=== PATIENT | male | born 1995 | race Caucasian/White ===

== ENCOUNTER 2019-09-04 18:04 | Emergency (ER) | payer OTHER, SELFPAY ==
[2019-09-04 18:15] VITALS: BP 105/54; PULSE 57; RESP 16; TEMP 36.9; O2SAT 97; BMI 26.6
--- NOTE | 2019-09-04 18:42 | ED.GENADULT ---
HPI - General Adult General Chief complaint: Abdominal Pain Stated complaint: STOMACH CRAMPS VOMITING FATIGUE ANXIETY Time Seen by Provider: 09/04/19 18:32 Source: patient Mode of arrival: Ambulatory Limitations: no limitations History of Present Illness HPI narrative: 24-year-old male here for evaluation of nausea and anxiety and stomach pain and headaches and fatigue. Does smoke marijuana which he does not think makes symptoms worse. No cough for shortness of breath. 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 He has had anxiety in the past. Is not currently on any medications for this. Has not tried anything for his symptoms prior to arrival Related Data Previous Rx's Medication Instructions Recorded lorazepam [Ativan] 0.5 mg PO TID PRN #10 tab 09/04/19 Allergies Allergy/AdvReac Type Severity Reaction Status Date / Time No Known Drug Allergies Allergy Verified 09/04/19 18:22 Review of Systems Constitutional Constitutional: Reports chills, Reports fatigue, Denies fever(s), Reports headache(s) and Reports malaise Eyes Eyes: Denies change in vision ENT Ears, Nose, Mouth, and Throat: Reports headache(s) Cardiovascular Cardiovascular: Denies chest pain and Denies dyspnea Respiratory Respiratory: Denies dyspnea Gastrointestinal Gastrointestinal: Denies change in bowel habits and Reports nausea Musculoskeletal Musculoskeletal: Denies arthralgias and Denies myalgias Integumentary/Breasts Skin/Breast: Denies rash Neurologic Neurologic: Denies behavioral changes and Reports headache(s) Psychiatric Psychiatric: Denies behavioral changes Endocrine Endocrine: Reports fatigue Hematologic/Lymphatic Hematologic/Lymphatic: Denies easy bleeding and Denies easy bruising Patient History Medical History (Updated 09/05/19 @ 00:32 by Shola Villareal DO) Anxiety (Inactive) Impacted cerumen of left ear (Inactive) Social History Smoking Status: Current every day smoker Smoking Status: Current every day smoker tobacco type: cigarettes alcohol intake frequency: a few times a month Alcohol type: hard liquor Substance Use Type: marijuana Exam Initial Vital Signs Initial Vital Signs: Vital Signs Temperature 98.4 F 09/04/19 18:15 Pulse Rate 57 L 09/04/19 18:15 Respiratory Rate 16 09/04/19 18:15 Blood Pressure 105/54 L 09/04/19 18:15 Pulse Oximetry 97 09/04/19 18:15 HENMT Head: normal to inspection and normocephalic Resp Effort & Inspection: normal respiratory effort Auscultation: clear to auscultation bilaterally Cardio Rate: regular rate Rhythm: regular rhythm GI Inspection: non-distended Palpation: soft Skin Lesions: no lesions Rashes: no rashes Neuro General: patient alert, patient awake and patient oriented x3 Cognition: normal cognition Speech: speech normal Extrem General: capillary refill normal Psych Appearance: grossly normal and well kempt Speech and Movement: restless Mood: anxious mood Course Vital Signs Vital signs: Vital Signs - 8 hr 09/04/19 18:15 Temperature 98.4 F Pulse Rate 57 L Respiratory Rate 16 Blood Pressure 105/54 L Pulse Oximetry 97 Medical Decision Making MDM Narrative Medical decision making narrative: I suspect that the patient's symptoms are related to anxiety. I have low suspicion for pneumonia or intra-abdominal surgical pathology. Low suspicion for COVID-19 based on his history and physical exam. I asked the patient if he felt like he needed anxiety medicine and he said yes. Will send him home with a short course of Ativan. Will have him follow-up with his primary provider. He was given strict return precautions. He did expressed understanding and agreement with this plan and did express agreement with holding on further workup. Discharge Plan Departure Patient Disposition: Home Clinical Impression: Anxiety Discharge Date/Time: 09/04/19 18:59 Instructions: DI for Anxiety -- Adult Activity Restrictions/Additional Instructions: Recommend that you contact your primary provider for a follow-up. If you do not have a primary provider you can contact the health water resources technical officer at [phone]. Return to the emergency department for any new or worsening symptoms Prescriptions: New lorazepam [Ativan] 0.5 mg tablet 0.5 mg PO TID PRN (Reason: anxiety) Qty: 10 RF: 0
== END 2019-09-04 18:59 | disposition home or self-care (01) ==
PROVIDERS: Emergency Provider Emergency Medicine
DX: F41.9 Anxiety disorder, unspecified (principal); R11.2 Nausea with vomiting, unspecified; R51 Headache; R10.9 Unspecified abdominal pain
CPT/HCPCS: 99281

== ENCOUNTER 2019-09-08 14:13 | Emergency (ER) | payer OTHER, SELFPAY ==
[2019-09-08 14:19] VITALS: BP 104/86; PULSE 54; RESP 16; TEMP 36.9; O2SAT 100; BMI 26.6
--- NOTE | 2019-09-08 15:09 | ED.NAVMDI ---
HPI - Nausea/Vomiting/Diarrhea <Maeve Drummond PA-C - Last Filed: 09/08/19 22:17> General Chief complaint: Nausea/Vomiting/Diarrhea Stated complaint: states nausea/anxiety Time Seen by Provider: 09/08/19 14:39 Source: patient Mode of arrival: Ambulatory History of Present Illness HPI Narrative: This is a 24-year-old male with a history of anxiety who presents to the emergency department complaining of feeling 1 like he wanted to throw up when he saw food this morning, loose stools for 2 weeks, increased anxiety recently including a feeling of tightness in his stomach with nausea this morning. He was seen previously in the emergency department here 2 days ago. He advises that he uses marijuana but lately this has not been helping as much with his anxiety. He says that he has been having stools about once a day and they are not watery they are just slightly loose. He says that he has nausea in the morning and at night occasionally and he believes it is associated with his anxiety. He had a full meal last night but has not eaten much today. He brings with him a prescription for Ativan which he says he has only used a couple times since he received. When asked what brought him in today specifically he says that he just wants to make sure that was going on is anxiety and wants a note for work as he has missed the last couple of days and does not feel he is going to be able to go in consistently in the next few days. He presents with his mother and they both say that they are in the process of moving they have been living in a house with multiple families and least 7 people in the same house and he has been sleeping on a couch for a while now. This has increased his anxiety significantly lately but they are moving to a bigger house in the 3rd week of September. He works as a gas plumber at night. He states he used to have agoraphobia however this has resolved. He states he has never seen a counselor or psychiatrist. He denies anorexia, vomiting, diarrhea, constipation, ongoing abdominal pain, chest pain, fever, chills, body aches or any other symptoms. MD complaint: nausea Onset (ago): hour(s) (4) Description of Vomiting: none Description of Diarrhea: none and other (Has been having 1 slightly loose stool a day for the past 2 weeks) Associated Abdominal Pain: No (When he feels nausea/anx he gets tightness in belly, not present now) Location of pain: other (Center of bili) Radiation: does not radiate Severity: mild Severity scale (1-10): 2 Quality: other (Tightness like a ball) Pain Consistency: now resolved Relieving factors: other (Becoming less anxious) Exacerbating factors: other (Anxiety and stress) Associated symptoms: denies other symptoms Related Data Previous Rx's Medication Instructions Recorded lorazepam [Ativan] 0.5 mg PO TID PRN #10 tab 09/04/19 ondansetron 4 mg PO Q8H #20 tab 09/08/19 Allergies Allergy/AdvReac Type Severity Reaction Status Date / Time No Known Drug Allergies Allergy Verified 09/08/19 14:19 Review of Systems <Maeve Drummond PA-C - Last Filed: 09/08/19 22:17> Review of Systems Narrative: GENERAL: Denies chills, fatigue, malaise, fever, sweats. HEENT: Denies sinus pain, ear pain, sore throat, difficulty swallowing, dizziness. RESPIRATORY: Denies dyspnea, cough, wheezing, hemoptysis, sputum. CARDIOVASCULAR: Denies chest pain, palpitations, orthopnea, edema, GASTROINTESTINAL: Positive for nausea, denies vomiting, positive for abdominal pain associated with anxiety episodes, negative for diarrhea, constipation, melena. : Had 1 episode last night where he Peed and then felt he needed to pee again right away but was unable to otherwise Denies dysuria, frequency, incontinence, hematuria, urinary retention. MUSCULOSKELETAL: denies weakness, joint pain, or bony pain SKIN: Denies rash, skin lesions, or other NEUROLOGIC: Denies weakness, headache, numbness, change in speech, confusion, seizures, incoordination. PSYCHIATRIC: Positive for worsening anxiety recently. No other concerning psychosocial issues. 12 point review of systems is negative except for those stated above Patient History <Maeve Drummond PA-C - Last Filed: 09/08/19 22:17> Medical History Anxiety (Inactive) Impacted cerumen of left ear (Inactive) Social History Smoking Status: Current every day smoker Smoking Status: Current every day smoker tobacco type: cigarettes alcohol intake frequency: a few times a month Alcohol type: hard liquor Substance Use Type: marijuana Exam <Maeve Drummond PA-C - Last Filed: 09/08/19 22:17> Narrative Exam Narrative: GENERAL: 24 year old patient appears stated age. Well-nourished, well-developed patient, in mild distress. HEAD: Atraumatic. Normocephalic. EYES: Pupils equal round and reactive. Extraocular motions intact. No scleral icterus. No injection or drainage. ENT: Nose without bleeding, purulent drainage. Throat without erythema, tonsillar hypertrophy or exudate. Airway patent. NECK: Trachea midline. Non tender CARDIOVASCULAR: Regular rate and rhythm without murmurs, gallops, or rubs. RESPIRATORY: Clear to auscultation. Breath sounds equal bilaterally. No wheezes, rales, or rhonchi. GASTROINTESTINAL: Abdomen soft, non-tender, nondistended. EXTREMITIES: No edema or joint tenderness. BACK: Nontender without deformity or crepitance. No flank tenderness. NEURO: AOx3. SKIN: No rash or erythema of visible areas Initial Vital Signs Initial Vital Signs: Vital Signs Temperature 98.4 F 09/08/19 14:19 Pulse Rate 54 L 09/08/19 14:19 Respiratory Rate 16 09/08/19 14:19 Blood Pressure 104/86 09/08/19 14:19 Pulse Oximetry 100 09/08/19 14:19 <Jackie Shelton MD - Last Filed: 09/10/19 18:49> Initial Vital Signs Initial Vital Signs: Vital Signs Temperature 98.4 F 09/08/19 14:19 Pulse Rate 54 L 09/08/19 14:19 Respiratory Rate 16 09/08/19 14:19 Blood Pressure 104/86 09/08/19 14:19 Pulse Oximetry 100 09/08/19 14:19 Scores <Maeve Drummond PA-C - Last Filed: 09/08/19 22:17> GCS [place] coma scale eye opening: Spontaneous [place] coma scale verbal response: Orientated [place] coma scale motor response: Obey commands [place] coma scale total score: 15 Course <Maeve Drummond PA-C - Last Filed: 09/08/19 22:17> Vital Signs Vital signs: Vital Signs - 8 hr 09/08/19 14:19 09/08/19 16:43 Temperature 98.4 F Pulse Rate 54 L 82 Respiratory Rate 16 12 Blood Pressure 104/86 138/76 Pulse Oximetry 100 98 <Jackie Shelton MD - Last Filed: 09/10/19 18:49> Vital Signs Vital signs: Vital Signs - 8 hr 09/08/19 14:19 09/08/19 16:43 Temperature 98.4 F Pulse Rate 54 L 82 Respiratory Rate 16 12 Blood Pressure 104/86 138/76 Pulse Oximetry 100 98 MDM - Nausea/Vomiting/Diarrhea <Maeve Drummond PA-C - Last Filed: 09/08/19 22:17> Differential Diagnosis Differential diagnosis: Likely other (Anxiety, nausea) Medical Records Attestation: I reviewed the patient's medical records. Lab Data Attestation: I reviewed the patient's lab results. Labs: Urine Dip Bedside Urine Glucose Negative Bedside Urine Bilirubin - Negative Bedside Urine Ketone - Negative Urine Specific [place] 1.015 Bedside Urine Occult Blood - Negative Bedside Urine pH 8.0 Bedside Urine Protein - Negative Bedside Urine Urobilinogen +/- 1mg Bedside Urine Nitrite - Negative Bedside Urine Leukocytes - Negative Esterase MDM Narrative Medical decision making narrative: This is a 24-year-old male with history of anxiety and reported agoraphobia now resolved who presents to the emergency department complaining of an episode of nausea this morning when he saw food and ongoing problems with anxiety, as well as 1 loose stool per day for the past 2 weeks. Differential diagnoses considered included anxiety, nausea, gastroenteritis, viral illness, appendicitis I have low suspicion for any acute process based on the patient's history and exam--which is unremarkable, labs and imaging were not obtained with exception of UA which was negative, patient was not anxious during emergency department stay and had no active symptoms. Patient has had increased stress recently and increased anxiety; was seen in the emergency department 2 days ago for the same he was prescribed Zofran today and given a note for work through mid next week and advised to establish care with a PCP, seek counseling and/or psychiatry care for further management of his anxiety. Patient presented with his mother patient and mother were in agreement with the plan and all questions were answered, emergency return precautions were provided. <Jackie Shelton MD - Last Filed: 09/10/19 18:49> Lab Data Labs: Urine Dip Bedside Urine Glucose Negative Bedside Urine Bilirubin - Negative Bedside Urine Ketone - Negative Urine Specific [place] 1.015 Bedside Urine Occult Blood - Negative Bedside Urine pH 8.0 Bedside Urine Protein - Negative Bedside Urine Urobilinogen +/- 1mg Bedside Urine Nitrite - Negative Bedside Urine Leukocytes - Negative Esterase Discharge Plan Departure Patient Disposition: Home Clinical Impression: Anxiety, Nausea Discharge Date/Time: 09/08/19 16:44 Instructions: Anxiety Disorders, DI for Anxiety -- Adult, DI for Nausea -- Adult Activity Restrictions/Additional Instructions: Thank you for letting his be part of your care today in the emergency department. There is no evidence of an emergent or life threatening illness at this time, but follow up with your doctor in 1-2 days is recommended nonetheless to continue to rule out serious underlying causes of your symptoms. Please call the office for an appointment. Please return to the Emergency Department for any worsening or persistent symptoms. Please take medications as directed. I have prescribed Zofran which is an anti nausea medicine that may be helpful to you when you feel like your anxiety is acting up, you can also continue to take the anti anxiety medicine that you were prescribed previously as needed. I do recommend you pursue counseling and/or seeing a psychiatrist as it seems that your symptoms of anxiety have been worsening somewhat recently and has been under increased stress. It is also important you follow-up with a primary care physician after her visit today to see how you are doing in the next few days to 1 week. Please try again to establish a primary care doctor and be seen by them this will be important if you need ongoing medication for your anxiety. Prescriptions: New ondansetron 4 mg tablet,disintegrating 4 mg PO Q8H Qty: 20 RF: 0 No Action lorazepam [Ativan] 0.5 mg tablet 0.5 mg PO TID PRN (Reason: anxiety) Qty: 10 RF: 0 Referrals: [facility] [Outside] Stand Alone Forms: Work Release Note <Jackie Shelton MD - Last Filed: 09/10/19 18:49> [facility]: I was immediately available in the department for consultation throughout this patient's visit. I agree with documentation as above. Jackie Shelton MD
[2019-09-08 16:43] VITALS: BP 138/76; PULSE 82; RESP 12; O2SAT 98
== END 2019-09-08 16:44 | disposition home or self-care (01) ==
PROVIDERS: Emergency Provider Student in an Organized Health Care Education/Training Program
DX: F41.9 Anxiety disorder, unspecified (principal); R11.0 Nausea
CPT/HCPCS: 81003; 99281

== ENCOUNTER 2022-02-12 21:40 | Emergency (ER) | payer OTHER, MEDICAID, SELFPAY ==
[2022-02-12 22:09] VITALS: BP 105/68; PULSE 88; RESP 18; TEMP 36.8; O2SAT 100; BMI 34.1
[2022-02-12 23:22] LABS: Add Manual Diff / Slide Review NO; Basophils Absolute Auto 100 /uL (0-100); Basophils Percent Auto 0.8 % (0-2); Eosinophils Absolute Auto 100 /uL (0-450); Eosinophils Percent Auto 1.1 % (2-4); Hematocrit 47.7 % (41-53); Hemoglobin 15.9 g/dL (13.5-17.5); Lymphocytes Absolute Auto 2200 /uL (1100-4500); Lymphocytes Percent Auto 22.4 % (25-40); Mean Corpuscular HGB Conc 33.4 % (30-36); Mean Corpuscular Hemoglobin 29.8 PG (26-34); Mean Corpuscular Volume 89.1 fL (80-100); Monocytes Absolute Auto 800 /uL (0-900); Monocytes Percent Auto 8.7 % (3-14); Neutrophils Absolute Auto 6500 /uL (1500-7000); Platelet Count 281 X10^3/uL (150-400); Red Blood Cell Count 5.35 X10^6/uL (4.5-5.9); Red Cell Distribution Width 13.5 % (11.6-14.8); White Blood Cell Count 9.7 X10^3/uL (4.5-11.0)
[2022-02-12 23:29] LABS: Acetaminophen < 10 ug/mL (10-30); Alanine Aminotransferase 75 IU/L (<50); Albumin 4.6 g/dL (3.5-5.0); Albumin Globulin Ratio 1.7 (1.0-2.8); Alkaline Phosphatase 70 U/L (38-126); Aspartate Aminotransferase 43 IU/L (17-59); BUN Creatinine Ratio 10.4 (6-22); Bilirubin Total 0.9 mg/dL (0.2-1.3); Blood Urea Nitrogen 11 mg/dL (9-20); Calcium 9.3 mg/dL (8.4-10.2); Carbon Dioxide 25 mmol/L (22-32); Chloride 103 mmol/L (98-107); Estimated Glomerular Filt Rate > 60 mL/min (>60); Ethanol (ETOH) < 10 mg/dL; Globulin 2.7 g/dL (1.7-4.1); Glucose 89 mg/dL (70-100); HEMOLYSIS < 15 (0-50); Potassium 3.5 mmol/L (3.4-5.1); Salicylate < 1.0 mg/dL (<20); Sodium 140 mmol/L (137-145); Total Protein 7.3 g/dL (6.3-8.2)
[2022-02-12 23:35] LABS: Ur Creatinine 50 (Normal); Ur Specific Gravity >1.030 (Normal); Urine pH 5 (Normal)
[2022-02-12 23:36] LABS: UR Morphine/Opiate cutoff 300 Negative (Negative); Urine Amphetamines Negative (Negative); Urine Barbiturates Negative (Negative); Urine Benzodiazepines Negative (Negative); Urine Cocaine Negative (Negative); Urine MDMA Negative (Negative); Urine Methadone Negative (Negative); Urine Methamphetamines Negative (Negative); Urine Oxycodone Negative (Negative); Urine Phencyclidine Negative (Negative); Urine Tetrahydrocannabinol Positive (Negative); Urine Tricyclic Antidepressant Negative (Negative)
--- NOTE | 2022-02-12 23:39 | PC.NURSE ---
pt reports he doesn't want to harm or hurt himself at this time. after throwing out his pills he used weed and went home. states he wanted to just go to bed but that his mom came in and he told her what he'd done. she brought him in.
[2022-02-12 23:50] LABS: Free T4, Direct Thyroxine 1.12 ng/dL (0.78-2.19)
[2022-02-13 00:04] LABS: Thyroid Stimulating Hormone 2.24 uIU/mL (0.47-4.68)
--- NOTE | 2022-02-13 00:33 | ED_ITS ---
HPI - Psych <Catie Chappell DO - Last Filed: 02/14/22 03:51> General Chief Complaint: Psychiatric Symptoms Stated Complaint: Attempted suicide Time Seen by Provider: 02/13/22 00:32 Source: patient Mode of arrival: Ambulatory History of Present Illness HPI Narrative: Patient is a 26-year-old male who has anxiety depression chronic suicidal thoughts presenting today after almost attempted suicide. States that he and his family were arguing he took all of his pills drove to [place] went to the bathroom and was going to take all of them an attempt to kill himself but he did not and dumped most of them down the toilet. He denies taking any medications. He states that he has had thoughts of suicide since high school thought that it was normal. However tonight is seen got really bad. Mother states that he has been in poor mental health for a while and she is quite concerned for him. His family is apparently pushing him to be have better adult. Related Data Previous Rx's Medication Instructions Recorded clonazepam 0.5 mg tablet 0.5 mg PO DAILY #30 tabs 09/26/19 hydroxyzine HCl 25 mg tablet 25 mg PO BID PRN anxiety #60 tabs 09/26/19 ondansetron 4 mg disintegrating 4 mg PO Q8H #30 tabs 09/26/19 tablet Allergies Allergy/AdvReac Type Severity Reaction Status Date / Time No Known Drug Allergies Allergy Verified 09/26/19 11:01 Review of Systems <DO Marcell Neely Last Filed: 02/14/22 03:51> Review of Systems Narrative: GENERAL: Denies chills, fatigue, malaise, fever, sweats, travel HEENT: Denies sinus pain, ear pain, sore throat, difficulty swallowing, neck tania n RESPIRATORY: Denies dyspnea, cough, wheezing, hemoptysis, sputum. CARDIOVASCULAR: Denies chest pain, palpitations, orthopnea, edema GASTROINTESTINAL: Denies nausea, vomiting, abdominal pain, diarrhea, constipation, melena. : Denies dysuria, frequency, incontinence, hematuria, urinary retention, flank pain. MUSCULOSKELETAL: Denies weakness, joint pain, or bony pain SKIN: No rash, no erythema, no pruritus NEUROLOGIC: Denies weakness, dizziness, headache, numbness, change in speech, confusion PSYCHIATRIC: See HPI 12 point review of systems is negative except for those stated above and HPI Patient History <DO Marcell Neely Last Filed: 02/14/22 03:51> Medical History (Updated 02/13/22 @ 07:58 by Cookie Ramos DO) Anxiety Impacted cerumen of left ear Social History Smoking Status: Current every day smoker Smoking Status: Current every day smoker tobacco type: cigarettes alcohol intake frequency: a few times a month Alcohol type: hard liquor Substance Use Type: marijuana Exam <DO Marcell Neely Last Filed: 02/14/22 03:51> Initial Vital Signs Initial Vital Signs: Vital Signs Temperature 98.2 F 02/12/22 22:09 Pulse Rate 88 02/12/22 22:09 Respiratory Rate 18 02/12/22 22:09 Blood Pressure 105/68 02/12/22 22:09 Pulse Oximetry 100 02/12/22 22:09 Oxygen Delivery Method 02/12/22 22:09 GENERAL: Tearfull 26-year-old male, good eye contact CARDIOVASCULAR: peripheral pulses in tact, cap refill <2 sec RESPIRATORY: No respiratory distress, speaks in full sentences without difficulty [ABDOMEN: Soft, nontender, no guarding or rebound] EXTREMITIES: Normal range of motion, no clubbing or edema. Neurovascularly intact NEUROLOGICAL: Cranial nerves II through XII grossly intact. Normal gait and speech. SKIN: Warm, dry, no petechiae, no rashes or lesions. Psych Appearance: grossly normal Mental Status: mental status grossly normal Speech and Movement: speech and movement normal Affect: sad Attitude: cooperative Thought Process: normal Thought Content: normal Judgment: judgment good <Cookie Ramos DO - Last Filed: 02/15/22 11:29> Initial Vital Signs Initial Vital Signs: Vital Signs Temperature 98.2 F 02/12/22 22:09 Pulse Rate 88 02/12/22 22:09 Respiratory Rate 18 02/12/22 22:09 Blood Pressure 105/68 02/12/22 22:09 Pulse Oximetry 100 02/12/22 22:09 Oxygen Delivery Method 02/12/22 22:09 Course <DO Marcell Neely Last Filed: 02/14/22 03:51> Orders Ordered: Discontinued Medications Lorazepam (Lorazepam 0.5 Mg Tablet) 0.5 mg PO NOW ONE Stop: 02/13/22 13:34 Last Admin: 02/13/22 13:51 Dose: 0.5 mg Documented By: MARTHA Vital Signs Vital signs: Vital Signs - 8 hr 02/13/22 12:16 02/13/22 18:08 Temperature 97.7 F Pulse Rate 53 L 54 L Respiratory Rate 12 16 Blood Pressure 108/59 L 116/83 Pulse Oximetry 97 98 Oxygen Delivery Method Room Air Room Air <Cookie Ramos DO - Last Filed: 02/15/22 11:29> Orders Ordered: Discontinued Medications Lorazepam (Lorazepam 0.5 Mg Tablet) 0.5 mg PO NOW ONE Stop: 02/13/22 13:34 Last Admin: 02/13/22 13:51 Dose: 0.5 mg Documented By: MARTHA Vital Signs Vital signs: Vital Signs - 8 hr 02/13/22 12:16 02/13/22 18:08 Temperature 97.7 F Pulse Rate 53 L 54 L Respiratory Rate 12 16 Blood Pressure 108/59 L 116/83 Pulse Oximetry 97 98 Oxygen Delivery Method Room Air Room Air MDM - Psych <Catie Chappell, DO - Last Filed: 02/14/22 03:51> Lab Data Result diagrams: 02/12/22 23:00 02/12/22 23:00 Labs: Lab Results 02/12/22 02/12/22 02/12/22 Range/Units 23:00 23:00 23:00 WBC 9.7 (4.5-11.0) X10^3/uL RBC 5.35 (4.5-5.9) X10^6/uL Hgb 15.9 (13.5-17.5) g/dL Hct 47.7 (41-53) % MCV 89.1 (80-100) fL MCH 29.8 (26-34) PG MCHC 33.4 (30-36) % RDW 13.5 (11.6-14.8) % Plt Count 281 (150-400) X10^3/uL Neut % (Auto) 67.0 (50-75) % Lymph % (Auto) 22.4 L (25-40) % Centre % (Auto) 8.7 (3-14) % Eos % (Auto) 1.1 L (2-4) % Baso % (Auto) 0.8 (0-2) % Neut # (Auto) 6500 (6757-5323) /uL Lymph # (Auto) 2200 (2524-9317) /uL Centre # (Auto) 800 (0-900) /uL Eos # (Auto) 100 (0-450) /uL Baso # (Auto) 100 (0-100) /uL Sodium 140 (137-145) mmol/L Potassium 3.5 (3.4-5.1) mmol/L Chloride 103 (98-107) mmol/L Carbon Dioxide 25 (22-32) mmol/L BUN 11 (9-20) mg/dL Creatinine 1.06 (0.66-1.25) mg/dL Estimated GFR > 60 (>60) mL/min BUN/Creatinine Ratio 10.4 (6-22) Glucose 89 (70-100) mg/dL Calcium 9.3 (8.4-10.2) mg/dL Total Bilirubin 0.9 (0.2-1.3) mg/dL AST 43 (17-59) IU/L ALT 75 H (<50) IU/L Alkaline Phosphatase 70 (38-126) U/L Total Protein 7.3 (6.3-8.2) g/dL Albumin 4.6 (3.5-5.0) g/dL Globulin 2.7 (1.7-4.1) g/dL Albumin/Globulin Ratio 1.7 (1.0-2.8) TSH 2.24 (0.47-4.68) uIU/mL Free T4 1.12 (0.78-2.19) ng/dL Salicylates < 1.0 (<20) mg/dL U Opiates 300ng/mL cut (Negative) Ur Oxycodone Screen (Negative) Urine Methadone Screen (Negative) Acetaminophen < 10 (10-30) ug/mL Ur Barbiturates Screen (Negative) U Tricyclic Antidepress (Negative) Ur Phencyclidine Scrn (Negative) Ur Amphetamines Screen (Negative) U Methamphetamines Scrn (Negative) Ur MDMA Scrn (Ecstasy) (Negative) U Benzodiazepines Scrn (Negative) Urine Cocaine Screen (Negative) U Marijuana (THC) Screen (Negative) Ethyl Alcohol < 10 ( - 10) mg/dL SARS-CoV-2 (PCR) (Negative) 02/12/22 02/13/22 Range/Units 23:10 03:24 WBC (4.5-11.0) X10^3/uL RBC (4.5-5.9) X10^6/uL Hgb (13.5-17.5) g/dL Hct (41-53) % MCV (80-100) fL MCH (26-34) PG MCHC (30-36) % RDW (11.6-14.8) % Plt Count (150-400) X10^3/uL Neut % (Auto) (50-75) % Lymph % (Auto) (25-40) % Centre % (Auto) (3-14) % Eos % (Auto) (2-4) % Baso % (Auto) (0-2) % Neut # (Auto) (2064-0783) /uL Lymph # (Auto) (7989-1741) /uL Centre # (Auto) (0-900) /uL Eos # (Auto) (0-450) /uL Baso # (Auto) (0-100) /uL Sodium (137-145) mmol/L Potassium (3.4-5.1) mmol/L Chloride (98-107) mmol/L Carbon Dioxide (22-32) mmol/L BUN (9-20) mg/dL Creatinine (0.66-1.25) mg/dL Estimated GFR (>60) mL/min BUN/Creatinine Ratio (6-22) Glucose (70-100) mg/dL Calcium (8.4-10.2) mg/dL Total Bilirubin (0.2-1.3) mg/dL AST (17-59) IU/L ALT (<50) IU/L Alkaline Phosphatase (38-126) U/L Total Protein (6.3-8.2) g/dL Albumin (3.5-5.0) g/dL Globulin (1.7-4.1) g/dL Albumin/Globulin Ratio (1.0-2.8) TSH (0.47-4.68) uIU/mL Free T4 (0.78-2.19) ng/dL Salicylates (<20) mg/dL U Opiates 300ng/mL cut Negative (Negative) Ur Oxycodone Screen Negative (Negative) Urine Methadone Screen Negative (Negative) Acetaminophen (10-30) ug/mL Ur Barbiturates Screen Negative (Negative) U Tricyclic Antidepress Negative (Negative) Ur Phencyclidine Scrn Negative (Negative) Ur Amphetamines Screen Negative (Negative) U Methamphetamines Scrn Negative (Negative) Ur MDMA Scrn (Ecstasy) Negative (Negative) U Benzodiazepines Scrn Negative (Negative) Urine Cocaine Screen Negative (Negative) U Marijuana (THC) Screen Positive H (Negative) Ethyl Alcohol ( - 10) mg/dL SARS-CoV-2 (PCR) Negative (Negative) Urine Dip Bedside Urine Glucose Negative Bedside Urine Bilirubin - Negative Bedside Urine Ketone - Negative Urine Specific [place] 1.030 Bedside Urine Occult Blood - Negative Bedside Urine pH 6.0 Bedside Urine Protein - Negative Bedside Urine Urobilinogen - Negative Bedside Urine Nitrite - Negative Bedside Urine Leukocytes - Negative Esterase MDM Narrative Medical decision making narrative: Patient did have real thoughts of suicide night but fortunately did not take any medications. Blood work is overall reassuring. He has good family support. They have guns at home which are locked away his. Like to be placed. He understands that nothing is a quick fix. Patient would likely benefit from i npatient. Currently voluntary. Does not meet involuntary criteria. Signed out to Dr. Ramos [facility] has been contacted. <Cookie Ramos, DO - Last Filed: 02/15/22 11:29> Lab Data Labs: Lab Results 02/12/22 02/12/22 02/12/22 Range/Units 23:00 23:00 23:00 WBC 9.7 (4.5-11.0) X10^3/uL RBC 5.35 (4.5-5.9) X10^6/uL Hgb 15.9 (13.5-17.5) g/dL Hct 47.7 (41-53) % MCV 89.1 (80-100) fL MCH 29.8 (26-34) PG MCHC 33.4 (30-36) % RDW 13.5 (11.6-14.8) % Plt Count 281 (150-400) X10^3/uL Neut % (Auto) 67.0 (50-75) % Lymph % (Auto) 22.4 L (25-40) % Centre % (Auto) 8.7 (3-14) % Eos % (Auto) 1.1 L (2-4) % Baso % (Auto) 0.8 (0-2) % Neut # (Auto) 6500 (5446-2212) /uL Lymph # (Auto) 2200 (3082-3583) /uL Centre # (Auto) 800 (0-900) /uL Eos # (Auto) 100 (0-450) /uL Baso # (Auto) 100 (0-100) /uL Sodium 140 (137-145) mmol/L Potassium 3.5 (3.4-5.1) mmol/L Chloride 103 (98-107) mmol/L Carbon Dioxide 25 (22-32) mmol/L BUN 11 (9-20) mg/dL Creatinine 1.06 (0.66-1.25) mg/dL Estimated GFR > 60 (>60) mL/min BUN/Creatinine Ratio 10.4 (6-22) Glucose 89 (70-100) mg/dL Calcium 9.3 (8.4-10.2) mg/dL Total Bilirubin 0.9 (0.2-1.3) mg/dL AST 43 (17-59) IU/L ALT 75 H (<50) IU/L Alkaline Phosphatase 70 (38-126) U/L Total Protein 7.3 (6.3-8.2) g/dL Albumin 4.6 (3.5-5.0) g/dL Globulin 2.7 (1.7-4.1) g/dL Albumin/Globulin Ratio 1.7 (1.0-2.8) TSH 2.24 (0.47-4.68) uIU/mL Free T4 1.12 (0.78-2.19) ng/dL Salicylates < 1.0 (<20) mg/dL U Opiates 300ng/mL cut (Negative) Ur Oxycodone Screen (Negative) Urine Methadone Screen (Negative) Acetaminophen < 10 (10-30) ug/mL Ur Barbiturates Screen (Negative) U Tricyclic Antidepress (Negative) Ur Phencyclidine Scrn (Negative) Ur Amphetamines Screen (Negative) U Methamphetamines Scrn (Negative) Ur MDMA Scrn (Ecstasy) (Negative) U Benzodiazepines Scrn (Negative) Urine Cocaine Screen (Negative) U Marijuana (THC) Screen (Negative) Ethyl Alcohol < 10 ( - 10) mg/dL SARS-CoV-2 (PCR) (Negative) 02/12/22 02/13/22 Range/Units 23:10 03:24 WBC (4.5-11.0) X10^3/uL RBC (4.5-5.9) X10^6/uL Hgb (13.5-17.5) g/dL Hct (41-53) % MCV (80-100) fL MCH (26-34) PG MCHC (30-36) % RDW (11.6-14.8) % Plt Count (150-400) X10^3/uL Neut % (Auto) (50-75) % Lymph % (Auto) (25-40) % Centre % (Auto) (3-14) % Eos % (Auto) (2-4) % Baso % (Auto) (0-2) % Neut # (Auto) (6270-0485) /uL Lymph # (Auto) (2558-4476) /uL Centre # (Auto) (0-900) /uL Eos # (Auto) (0-450) /uL Baso # (Auto) (0-100) /uL Sodium (137-145) mmol/L Potassium (3.4-5.1) mmol/L Chloride (98-107) mmol/L Carbon Dioxide (22-32) mmol/L BUN (9-20) mg/dL Creatinine (0.66-1.25) mg/dL Estimated GFR (>60) mL/min BUN/Creatinine Ratio (6-22) Glucose (70-100) mg/dL Calcium (8.4-10.2) mg/dL Total Bilirubin (0.2-1.3) mg/dL AST (17-59) IU/L ALT (<50) IU/L Alkaline Phosphatase (38-126) U/L Total Protein (6.3-8.2) g/dL Albumin (3.5-5.0) g/dL Globulin (1.7-4.1) g/dL Albumin/Globulin Ratio (1.0-2.8) TSH (0.47-4.68) uIU/mL Free T4 (0.78-2.19) ng/dL Salicylates (<20) mg/dL U Opiates 300ng/mL cut Negative (Negative) Ur Oxycodone Screen Negative (Negative) Urine Methadone Screen Negative (Negative) Acetaminophen (10-30) ug/mL Ur Barbiturates Screen Negative (Negative) U Tricyclic Antidepress Negative (Negative) Ur Phencyclidine Scrn Negative (Negative) Ur Amphetamines Screen Negative (Negative) U Methamphetamines Scrn Negative (Negative) Ur MDMA Scrn (Ecstasy) Negative (Negative) U Benzodiazepines Scrn Negative (Negative) Urine Cocaine Screen Negative (Negative) U Marijuana (THC) Screen Positive H (Negative) Ethyl Alcohol ( - 10) mg/dL SARS-CoV-2 (PCR) Negative (Negative) Urine Dip Bedside Urine Glucose Negative Bedside Urine Bilirubin - Negative Bedside Urine Ketone - Negative Urine Specific [place] 1.030 Bedside Urine Occult Blood - Negative Bedside Urine pH 6.0 Bedside Urine Protein - Negative Bedside Urine Urobilinogen - Negative Bedside Urine Nitrite - Negative Bedside Urine Leukocytes - Negative Esterase MDM Narrative Medical decision making narrative: Patient did have real thoughts of suicide night but fortunately did not take any medications. Blood work is overall reassuring. He has good family support. They have guns at home which are locked away his. Like to be placed. He understands that nothing is a quick fix. Patient would likely benefit from inpatient. Currently voluntary. Does not meet involuntary criteria. Signed out to Dr. Ramos [facility] [place] has been contacted. Rachel 02/13/22: Patient signed out to myself by Dr. Chappell. Patient seen independently. Initially sleeping. Spoke with his mother he has been accepted voluntarily at [facility]. Plan is for transfer sometime after 7:30 p.m. today. No additional issues through the shift. Discharge Plan Departure Patient Disposition: Xfer Psychiatric Hosp Clinical Impression: Depression Referrals: Major Burgess MD [Primary Care Provider] -
[2022-02-13 04:11] LABS: COVID19 -Nasal RAPID Negative (Negative)
[2022-02-13 12:16] VITALS: BP 108/59; PULSE 53; RESP 12; TEMP 36.5; O2SAT 97
--- NOTE | 2022-02-13 13:35 | CM.SWNOTE ---
Pt is a 26 year old male with history of depression, anxiety, and panic attacks who presents to ED with SI. Overnight, pt saw ED provider and staff midwife who assisted in getting acceptance at [facility] hospital. SW met with pt and he reports that he is agreeable to plan to dc to [facility] because he needs help. Pt reports history of SI all the way back to high school. Pt reports that he has never attempted before last night. Pt reports that he used to engage in self harm via cutting starting in high school but has not engaged in this behavior in some time. Pt reports that he was on medication for mental health disorders but stopped taking it a couple months ago when he moved from [place] back to [place]. Plan: Pt will discharge to [facility] today via BLS at 1820. JESUS Martínez
[2022-02-13] MEDS: LORazepam 0.5 MG TABLET PO (13:51)
[2022-02-13 18:08] VITALS: BP 116/83; PULSE 54; RESP 16; O2SAT 98
[2022-02-13 19:20] VITALS: BP 111/62; PULSE 50; O2SAT 98
== END 2022-02-13 19:25 ==
PROVIDERS: Emergency Medicine; Emergency Provider Emergency Medicine; PCP Student in an Organized Health Care Education/Training Program
DX: F32.A Depression, unspecified (principal); F41.1 Generalized anxiety disorder; Z20.822 Contact with and (suspected) exposure to COVID-19
CPT/HCPCS: 80053; 80305; 80320; 80329; 81003; 84439; 84443; 85025; 87635; 99284; C9803; G0480

== ENCOUNTER 2024-03-27 14:39 | Emergency (ER) | payer OTHER, SELFPAY ==
[2024-03-27 14:50] VITALS: BP 106/73; PULSE 53; RESP 17; TEMP 36.4; O2SAT 98; BMI 30.9
--- NOTE | 2024-03-27 14:58 | DI.US.S_ITS ---
PROCEDURE: US SCROTUM INDICATIONS: LEFT TESTICLE PAIN TECHNIQUE: Real-time scanning was performed of the scrotum and testicles, with image documentation. Color and pulse Doppler interrogation was performed of both testicles. COMPARISON: None. FINDINGS: Right: Testicle is normal in size at 4.5 x 2.3 x 2.5 cm, and homogenous in echotexture. Epididymis is normal in overall size and morphology. No hydrocele or varicoceles. Overlying scrotal skin is normal in thickness. Left: Testicle is normal in size at 4.2 x 2.4 x 2.8 cm, and homogeneous in echotexture. Epididymis is normal in overall size and morphology. No hydrocele or varicoceles. Overlying scrotal skin is normal in thickness. Doppler: Color and pulse Doppler demonstrate normal and symmetric arterial flow in both testicles. IMPRESSION: Normal testicular sonogram. No sonographic evidence of testicular torsion, orchitis or epididymitis. Dictated by: Margaret Resendez MD, PhD on 03/27/2024 at 15:33 Approved by: Margaret Resendez MD, PhD on 03/27/2024 at 15:34
[2024-03-27 17:53] LABS: Urine N gonorrhoeae NOT DETECTED
[2024-03-27 17:55] LABS: Urine Chlamydia NOT DETECTED
[2024-03-27] MEDS: ONDANSETRON 4 MG ODT SL (18:18)
[2024-03-27 18:19] VITALS: BP 112/59; PULSE 49; RESP 99
--- NOTE | 2024-03-27 18:42 | ED.MALEGU ---
HPI - Male Genitourinary <Theo Steele PA-C - Last Filed: 03/27/24 18:46> General Chief complaint: Urogenital-Male Stated complaint: Pain in groin. Sent by [facility]. Time Seen by Provider: 03/27/24 15:18 Source: patient Mode of arrival: Ambulatory History of Present Illness HPI Narrative: 28-year-old male presents to the ED with left testicular discomfort for 3 days. Patient denies any trauma. No fever, chills, dysuria. Patient states that his symptoms have remarkably improved today, almost completely resolved. Related Data Home Medications Medication Instructions Recorded Confirmed lamotrigine 200 mg tablet 200 mg PO DAILY 03/27/24 03/27/24 Previous Rx's Medication Instructions Recorded clonazepam 0.5 mg tablet 0.5 mg PO DAILY #30 tabs 09/26/19 hydroxyzine HCl 25 mg tablet 25 mg PO BID PRN anxiety #60 tabs 09/26/19 Allergies Allergy/AdvReac Type Severity Reaction Status Date / Time No Known Drug Allergies Allergy Verified 03/27/24 14:48 Review of Systems <Theo Steele PA-C - Last Filed: 03/27/24 18:46> Constitutional Constitutional: Denies chills, Denies fatigue, Denies fever(s), Denies frequent falls, Denies lethargy and Denies weakness Eyes Eyes: Denies change in vision, Denies eye discharge, Denies irritation and Denies loss of vision ENT Ears, Nose, Mouth, and Throat: Denies change in voice, Denies dizziness, Denies neck pain, Denies sore throat and Denies throat swelling Cardiovascular Cardiovascular: Denies chest pain, Denies irregular heart rhythm, Denies lightheadedness, Denies palpitations, Denies dyspnea, Denies dyspnea on exertion and Denies orthopnea Respiratory Respiratory: Denies cough, Denies dyspnea, Denies dyspnea on exertion and Denies wheezing Gastrointestinal Gastrointestinal: Denies abdominal pain, Denies change in bowel habits, Denies diarrhea, Denies nausea and Denies vomiting Genitourinary Genitourinary: Reports testicular pain Musculoskeletal Musculoskeletal: Denies neck pain and Denies numbness Integumentary/Breasts Skin/Breast: Denies pruritus, Denies erythema, Denies rash and Denies wounds Neurologic Neurologic: Denies behavioral changes, Denies confusion, Denies dizziness, Denies frequent falls, Denies loss of vision, Denies numbness and Denies weakness Psychiatric Psychiatric: Denies anxiety, Denies behavioral changes, Denies confusion, Denies depression, Denies homicidal ideation and Denies suicidal ideation Endocrine Endocrine: Denies fatigue, Denies flushing and Denies palpitations Hematologic/Lymphatic Hematologic/Lymphatic: Denies easy bruising Allergic/Immunologic Allergic/Immunologic: Denies urticaria, Denies throat swelling and Denies wheezing Patient History <Theo Steele PA-C - Last Filed: 03/27/24 18:46> Medical History Anxiety Impacted cerumen of left ear Social History Smoking Status: Current every day smoker Smoking Status: Current every day smoker tobacco type: cigarettes alcohol intake frequency: a few times a month Alcohol type: hard liquor Exam <Theo Steele PA-C - Last Filed: 03/27/24 18:46> Narrative Exam Narrative: Const General:?cooperative, healthy appearing and comfortable [facility] Head:?normal to inspection Ears:?hearing grossly normal bilaterally Nose:?external nose normal Face and sinus:?normal facial exam and sinuses nontender Mouth:?oral mucosae normal Throat:?posterior oropharynx normal Eyes General:?appearance normal, both eyes and all related structures Neck Neck:?normal visual inspection and no lymphadenopathy noted Resp Effort & Inspection:?normal respiratory effort Auscultation:?clear to auscultation bilaterally Cardio Rate:?regular rate Rhythm:?regular rhythm Normal exam. No scrotal swelling, tenderness to palpation, erythema. Neuro General:?patient alert, patient awake and patient oriented x3 Initial Vital Signs Initial Vital Signs: Vital Signs Temperature 97.6 F 03/27/24 14:50 Pulse Rate 53 L 03/27/24 14:50 Respiratory Rate 17 03/27/24 14:50 Blood Pressure 106/73 03/27/24 14:50 Pulse Oximetry 98 03/27/24 14:50 Oxygen Delivery Method Room Air 03/27/24 14:50 <Jackie Shelton MD - Last Filed: 03/28/24 08:35> Initial Vital Signs Initial Vital Signs: Vital Signs Temperature 97.6 F 03/27/24 14:50 Pulse Rate 53 L 03/27/24 14:50 Respiratory Rate 17 03/27/24 14:50 Blood Pressure 106/73 03/27/24 14:50 Pulse Oximetry 98 03/27/24 14:50 Oxygen Delivery Method Room Air 03/27/24 14:50 Course <Theo Steele PA-C - Last Filed: 03/27/24 18:46> Orders Ordered: Discontinued Medications Ondansetron HCl (Ondansetron 4 Mg Odt) 4 mg SL NOW ONE Stop: 03/27/24 18:14 Last Admin: 03/27/24 18:18 Dose: 4 mg Documented By: OLESYA Vital Signs Vital signs: Vital Signs - 8 hr 03/27/24 14:50 03/27/24 18:19 Temperature 97.6 F Pulse Rate 53 L 49 L Respiratory Rate 17 99 H Blood Pressure 106/73 112/59 L Pulse Oximetry 98 Oxygen Delivery Method Room Air Room Air <Jackie Shelton MD - Last Filed: 03/28/24 08:35> Orders Ordered: Discontinued Medications Ondansetron HCl (Ondansetron 4 Mg Odt) 4 mg SL NOW ONE Stop: 03/27/24 18:14 Last Admin: 03/27/24 18:18 Dose: 4 mg Documented By: OLESYA Vital Signs Vital signs: Vital Signs - 8 hr 03/27/24 14:50 03/27/24 18:19 Temperature 97.6 F Pulse Rate 53 L 49 L Respiratory Rate 17 99 H Blood Pressure 106/73 112/59 L Pulse Oximetry 98 Oxygen Delivery Method Room Air Room Air MDM - Male Genitourinary <Theo Steele PA-C - Last Filed: 03/27/24 18:46> Lab Data Labs: Lab Results 03/27/24 Range/Units 16:08 Ur Chlamydia DNA (PCR) Not detected N gonorrhoeae DNA (PCR) Not detected Urine Dip Bedside Urine Glucose Negative Bedside Urine Bilirubin - Negative Bedside Urine Ketone - Negative Urine Specific [place] 1.020 Bedside Urine Occult Blood - Negative Bedside Urine pH 6.0 Bedside Urine Protein - Negative Bedside Urine Urobilinogen - Negative Bedside Urine Nitrite - Negative Bedside Urine Leukocytes - Negative Esterase MDM Narrative Medical decision making narrative: 28-year-old male presents to the ED with left testicular discomfort for 3 days. Obtained a scrotal ultrasound which was without acute findings. UA without infection. GC was negative. It is reassuring that patient's symptoms have almost completely resolved. Patient did have some nausea for which he was given some Zofran. Recommend patient monitor his symptoms and return to the ED if he has any worsening symptoms. ED return precautions discussed with patient. Patient verbalized understanding. Medical records reviewed: Yes <Jackie Shelton MD - Last Filed: 03/28/24 08:35> Lab Data Labs: Lab Results 03/27/24 Range/Units 16:08 Ur Chlamydia DNA (PCR) Not detected N gonorrhoeae DNA (PCR) Not detected Urine Dip Bedside Urine Glucose Negative Bedside Urine Bilirubin - Negative Bedside Urine Ketone - Negative Urine Specific [place] 1.020 Bedside Urine Occult Blood - Negative Bedside Urine pH 6.0 Bedside Urine Protein - Negative Bedside Urine Urobilinogen - Negative Bedside Urine Nitrite - Negative Bedside Urine Leukocytes - Negative Esterase Discharge Plan Departure Patient Disposition: Home Clinical Impression: Left testicular pain Instructions: DI for Testicular Pain Activity Restrictions/Additional Instructions: You were evaluated in the ED today for testicular pain. Your ultrasound and urine were normal. Please monitor your symptoms and return to the ED if you have worsening symptoms. Please follow-up with your PCP as soon as possible. Prescriptions: No Action hydroxyzine HCl 25 mg tablet 25 mg PO BID PRN (Reason: anxiety) Qty: 60 0RF clonazepam 0.5 mg tablet 0.5 mg PO DAILY Qty: 30 0RF lamotrigine 200 mg tablet 200 mg PO DAILY Referrals: Miscellaneous,DoctorMD [Primary Care Provider] - Stand Alone Forms: Patient Portal/API/Survey ED Sign-out <Jackie Shelton MD - Last Filed: 03/28/24 08:35> Cosign ED Attending Cosignature Attestation: I was immediately available in the department for consultation throughout this patient's visit. Jackie Shelton MD
== END 2024-03-27 18:20 | disposition home or self-care (01) ==
PROVIDERS: Emergency Provider Student in an Organized Health Care Education/Training Program
DX: N50.812 Left testicular pain (principal)
CPT/HCPCS: 76870; 81003; 87491; 87591; 93975; 99283

== ENCOUNTER → 2024-07-24 14:29 | Outpatient (CLI) | payer OTHER, SELFPAY ==
[2024-07-24 15:56] LABS: Add Manual Diff / Slide Review NO; Basophils Absolute Auto 100 /uL (0-100); Basophils Percent Auto 0.8 % (0-2); Eosinophils Absolute Auto 100 /uL (0-450); Eosinophils Percent Auto 1.6 % (2-4); Hematocrit 45.6 % (41-53); Hemoglobin 15.6 g/dL (13.5-17.5); Lymphocytes Absolute Auto 1800 /uL (1100-4500); Lymphocytes Percent Auto 24.9 % (25-40); Mean Corpuscular HGB Conc 34.3 % (30-36); Mean Corpuscular Hemoglobin 31.1 PG (26-34); Mean Corpuscular Volume 90.8 fL (80-100); Monocytes Absolute Auto 600 /uL (0-900); Monocytes Percent Auto 8.6 % (3-14); Neutrophils Absolute Auto 4600 /uL (1500-7000); Neutrophils Percent Auto 64.1 % (50-75); Platelet Count 241 X10^3/uL (150-400); Red Blood Cell Count 5.02 X10^6/uL (4.5-5.9); Red Cell Distribution Width 12.9 % (11.6-14.8); White Blood Cell Count 7.1 X10^3/uL (4.5-11.0)
[2024-07-24 16:26] LABS: Alanine Aminotransferase 28 IU/L (<50); Albumin 4.5 g/dL (3.5-5.0); Alkaline Phosphatase 57 U/L (38-126); Aspartate Aminotransferase 31 IU/L (17-59); BUN Creatinine Ratio 7.9 (6-22); Bilirubin Total 1.1 mg/dL (0.2-1.3); Blood Urea Nitrogen 10 mg/dL (9-20); Calcium 9.2 mg/dL (8.4-10.2); Carbon Dioxide 27 mmol/L (22-32); Chloride 104 mmol/L (98-107); Estimated Glomerular Filt Rate > 60 mL/min (>60); Globulin 2.2 g/dL (1.7-4.1); Glucose 80 mg/dL (70-99); HEMOLYSIS < 15 (0-50); Potassium 4.3 mmol/L (3.4-5.1); Sodium 138 mmol/L (137-145); Total Protein 6.7 g/dL (6.3-8.2)
[2024-07-24 16:56] LABS: TSH w/ Reflex to FT4 2.11 uIU/mL (0.47-4.68)
== END ==
PROVIDERS: PCP Family Medicine; Referring Provider Family Medicine; Visit Provider Family Medicine
DX: F31.9 Bipolar disorder, unspecified (principal); F41.1 Generalized anxiety disorder; R53.83 Other fatigue
CPT/HCPCS: 36415; 80053; 84443; 85025